=== PATIENT | male | born 1950 | race Caucasian/White ===

== ENCOUNTER 2024-03-21 12:56 | Emergency (ER) | payer MEDICARE, OTHER, SELFPAY ==
--- NOTE | ~2024-03-21 | XR_ITS ---
EXAMINATION: XR chest 1V portable DATE: 03/21/2024 16:46 INDICATION: Altered mental status. TECHNIQUE: A single frontal view of the chest was obtained. COMPARISON: None. FINDINGS: There is mild elevation of right hemidiaphragm. No pneumonia, pleural effusion, or pneumoth orax. The heart size is normal. IMPRESSION: 1. Mild elevation of right hemidiaphragm. Reviewed, dictated and finalized at location A.
--- NOTE | ~2024-03-21 | CT_ITS ---
EXAMINATION: CTA BRAIN/CAROTID DATE: 03/21/2024 14:57 INDICATION: Slurred speech TECHNIQUE: Computed tomographic angiography (CTA) of the head and neck was performed with 100 mL Omni paque-350 intravenous contrast. Multiplanar reconstructions and maximum intensity projection 3D-recon structions of the carotid arteries and of the intracranial arteries were created by the technologist on a separate workstation. Precontrast CT of the head was also obtained. Automated exposure control and iterative reconstruction technique were employed.The dose-length product was 1731.17 mGy-cm. COMPARISON: None. FINDINGS: Carotid arteries: Visualized thoracic aorta is normal in caliber with no dissection. There is small amount of atheroscl erotic plaque with 0% stenosis of the right carotid bulb relative to normal distal artery lumen diame ter (NASCET criteria). There is 20% stenosis of the left carotid bulb relative to normal distal arter y lumen diameter. Mild dependent atelectasis in the visualized upper lungs. Cervical soft tissues are unremarkable. Mild thoracic spondylosis. Head: No acute intracranial hemorrhage, acute infarction or abnormal extra axial fluid collection. There is mild scattered white matter hypoattenuation consistent with chronic small vessel ischemic disease. S ymmetric prominence of the sulci and ventricles consistent with mild to moderate age-appropriate diff use cerebral volume loss. No mass/mass effect. No abnormally enhancing brain lesions identified on th e postcontrast imaging. The orbits, paranasal sinuses and mastoid air cells are normal. Intracranial arteries Bilateral vertebral arteries are codominant. Small amount of atherosclerotic plaque with 30% stenosis at the proximal intracranial right vertebral artery. There is also atrophy chronic plaque at the loni ateral carotid siphons with 40% stenosis at the right suprasellar segment and 60% at the left suprase llar segment. There is no evident stenosis in the basilar and left vertebral artery. There are no ane urysms identified. Both A1 and P1 segments are patent. The left P1 segment is diminutive. There are patent bilateral posterior commuting artery is slightly larger in caliber on the left. Cerebral arter ial arborization appears symmetric. IMPRESSION: 1. 0% stenosis of the right carotid bulb relative to normal distal artery lumen diameter (NASCET crit eria). 2. 20% stenosis of the left carotid bulb relative to normal distal artery lumen diameter. 3. Scattered atherosclerotic plaque in the central intracranial arteries with 40% stenosis at the sup rasellar right internal carotid artery, 60% of the suprasellar left internal carotid artery and 30% s tenosis at the right vertebral artery. No aneurysms or thrombosis. 4. Normal aging brain with mild to moderate diffuse volume loss and mild scattered white matter hypoa ttenuation consistent with chronic small vessel ischemic disease. No acute intracranial process or ab normally enhancing brain lesions. Reviewed, dictated and finalized at location A. IMPRESSION: 1. 0% stenosis of the right carotid bulb relative to normal distal artery lumen diameter (NASCET criteria). 2. 20% stenosis of the left carotid bulb relative to normal distal artery lumen diameter. 3. Scattered atherosclerotic plaque in the central intracranial arteries with 4 0% stenosis at the suprasellar right internal carotid artery, 60% of the supras ellar left internal carotid artery and 30% stenosis at the right vertebral rama ry. No aneurysms or thrombosis. 4. Normal aging brain with mild to moderate diffuse volume loss and mild scatte red white matter hypoattenuation consistent with chronic small vessel ischemic disease. No acute intracranial process or abnormally enhancing brain lesions.
[2024-03-21 13:03] VITALS: BP 117/72; PULSE 73; RESP 19; TEMP 36.6; O2SAT 97
[2024-03-21 13:11] VITALS: O2SAT 97
--- NOTE | 2024-03-21 13:13 | PC.NURSE ---
Patient states scar on his stomach is from hx of liver cancer where they removed 64% of liver
--- NOTE | 2024-03-21 13:23 | ECG_ITS ---
Test Date: 2024-03-21 13:07:39 Measurements Intervals [place] Rate: 74 P: 23 TN: 199 QRS: 6 QRSD: 97 T: 0 QT: 405 QTc: 451 Interpretive Statements SINUS RHYTHM BORDERLINE ST ABNORMALITY- ANT/INF LEADS BASELINE ARTIFACT- I, II, III BORDERLINE ECG No previous ECG available for comparison Electronically Signed On 03-21-2024 13:43:00 CDT by Loki Roman D.O.
[2024-03-21 13:30] VITALS: BP 117/72; PULSE 67; RESP 18; O2SAT 95
[2024-03-21 14:11] LABS: Basophils Percent Auto 0.5 % (0.2-1.2); Eosinophils Percent Auto 0.5 % (0-4.4); Hemoglobin 11.1 g/dL (14.0-18.0); Immature Granulocyte Absolute 0.04 K/mm3 (0.00-0.031); Immature Granulocyte Percent A 0.6 % (0-0.5); Immature Platelet Fraction Pct 4.2 % (0.9-11.2); Lymphocytes Absolute Auto 0.78 K/mm3 (0.9-3.2); Lymphocytes Percent Auto 12.1 % (18.3-44.2); Mean Corpuscular HGB Conc 32.6 g/dl (32-36); Mean Corpuscular Hemoglobin 30.3 pg (26-34); Mean Corpuscular Volume 92.9 fl (80-100); Mean Platelet Volume 11.4 fl (7.4-10.4); Monocytes Absolute Auto 0.7 K/mm3 (0.1-0.6); Monocytes Percent Auto 10.2 % (2.6-8.5); Neutrophils Absolute Auto 4.9 K/mm3 (1.3-6.7); Neutrophils Percent Auto 76.1 % (45.5-73.1); Platelet Count Result 105 k/mm3 (150-375); Red Blood Count 3.66 M/mm3 (4.6-6.20); White Blood Count 6.5 K/mm3 (4.5-10.0)
[2024-03-21 14:17] LABS: INR 1.2; Prothrombin Time 15.2 Seconds (11.1-14.7)
[2024-03-21 14:18] LABS: Alanine Aminotransferase 19 U/L (6-50); Albumin Level 3.3 g/dL (3.5-5.1); Alkaline Phosphatase 246 U/L (38-126); Anion Gap 7 mmol/L (4-12); Aspartate Amino Transferase 58 U/L (17-59); Bilirubin,Total 0.6 mg/dL (0.2-1.3); Blood Urea Nitrogen 18 mg/dL (9-20); Calcium 10.2 mg/dL (8.4-10.2); Carbon Dioxide 26 mmol/L (22-30); Chloride 102 mmol/L (98-107); Estimated CRCL calculation 75 ml/min; Estimated Glomerular Filt Rate > 60; Glucose 89 mg/dL (65-110); Partial Thromboplastin Time 29.4 Seconds (22.3-36.8); Potassium 3.6 mmol/L (3.4-5.0); Sodium 135 mmol/L (137-145)
--- NOTE | 2024-03-21 14:32 | ED.AMS ---
HPI - Altered Mental Status General Chief Complaint: Altered Mental Status Stated Complaint: weakness Time Seen by Provider: 03/21/24 13:55 History of Present Illness HPI narrative: per , he had been acting funny since this morning, as in he was saying mean things to her. She called an ambulance because she heard a thud and found the patient on the ground. Patient himself is denying any complaints and does not think there is anything wrong; he states that he is here because he fell. Denies any chest pain, shortness of breath, headache, numbness anywhere. Per EMS had normal exam other than possibly slurred, slightly slow speech however patient states this was because he has no teeth in Related Data Allergies Allergy/AdvReac Type Severity Reaction Status Date / Time Unable to Assess Allergy Verified 03/21/24 13:21 Review of Systems Review of Systems: All systems reviewed & are unremarkable except as noted in HPI and below Exam Narrative: EXAMINATION OF ORGAN SYSTEMS/BODY AREAS: Constitutional: Vital signs per nursing GENERAL:[No acute distress, non-toxic appearing.] HEAD: Normal with no signs of head trauma. EYES: EOMI, conjunctiva normal, PERRL ENT: Hearing grossly intact LUNGS: Nonlabored breathing. HEART: [Regular rate and rhythm] ABD: [Soft], [nontender to palpation] EXT: Normal range of motion SKIN: [No rashes or lesions.] NEURO: [Alert and oriented x 3. Normal strength upper and lower extremities bilaterally.] Slightly slurred speech. No facial droop. PSYCH: Normal affect Course Vital Signs Vital signs: Vital Signs Temperature 97.8 F 03/21/24 13:03 Pulse Rate 73 03/21/24 13:03 Respiratory Rate 19 03/21/24 13:03 Blood Pressure 117/72 03/21/24 13:03 Pulse Oximetry 97 03/21/24 13:03 Oxygen Delivery Room Air 03/21/24 13:03 Temperature 98.4 F 03/21/24 16:49 Pulse Rate 100 03/21/24 16:49 Respiratory Rate 14 03/21/24 16:49 Blood Pressure 137/78 03/21/24 16:49 Pulse Oximetry 100 03/21/24 16:49 Oxygen Delivery Room Air 03/21/24 13:11 MDM - Altered Mental Status MDM Narrative Medical decision making narrative: Patient presents with potential head trauma/altered mental status, he was found on the floor. I did obtain further history from Ela his . He is denying any complaints, NIH stroke scale here is 0-1 for possible slightly slurred speech though this may be due to him not having dentures. A broad workup here initiated, only significance is benzodiazepines on his urine drug screen, I did review his medications and did not see anything on there, though he is on sertraline which can give a false positive. I did also talk to his Ela on the phone, she does state that he has had similar episodes in the past, patient states that he sees a neurologist and is due to see them in the next few days, and that he is feeling fine, and he does not want to stay and he wants to go home. [facility] and [facility] Department available to answer. I did let the patient know that I would like to transfer him some more so that he be seen by a neurologist as we do not have Neurology here today. Patient declines this, he states that he wants go home. Discussed risk of missing possible stroke with permanent neurologic damage or , he wants to go home. I did discuss this with his and she states that he does make his own medical decisions, patient is alert and oriented x4 at this time and I cannot hold him against his will. His will be here to pick him up and I did discuss strict return precautions with both her and with the patient, he does have close follow-up with his neurologist in the next few days. Lab Data 03/21/24 14:02 03/21/24 14:02 Labs: Lab Results 03/21/24 03/21/24 Range/Units 14:02 15:22 WBC 6.5 (4.5-10.0) K/mm3 RBC 3.66 L (4.6-6.20) M/mm3 Hgb 1
[2024-03-21 15:29] LABS: Add Urine Microscopic? NO; Appearance Urine Clear (Clear); Bilirubin Urine Negative (Negative); Blood Urine Negative (Negative); Color Urine Yellow (Yellow); Glucose Urine UA Negative (Negative); Ketones Urine Trace mg/dL (Negative); Leukocyte Esterase Ur Negative LEU/UL (Negative); Nitrate Urine Negative (Negative); Protein Urine Negative (Negative); Specific Grav Ur 1.036 (1.001-1.035); pH Urine 5.5 (5.0-9.0)
[2024-03-21 15:30] VITALS: BP 128/90; PULSE 68; RESP 15; O2SAT 98
[2024-03-21 15:55] LABS: Ethanol < 10 mg/dL (<10)
[2024-03-21 16:08] LABS: Amphetamine Screen Urine Negative (Negative); Barbiturate Screen Urine Negative (Negative); Benzodiazepines Screen Urine Positive (Negative); Cannabinoid Screen Urine Negative (Negative); Cocaine Screen Urine Negative (Negative); Methadone Screen Urine Negative (Negative); Opiate Screen Urine Negative (Negative); Phencyclidine Screen Urine Negative (Negative)
[2024-03-21 16:49] VITALS: BP 137/78; PULSE 100; RESP 14; TEMP 36.9; O2SAT 100
--- NOTE | 2024-03-21 17:28 | PC.NURSE ---
Patient spouse called to discuss discharge and a ride home. spouse is going to come get the patient but is coming from [place].
[2024-03-21 18:21] VITALS: BP 153/77; PULSE 73; RESP 20; TEMP 36.7; O2SAT 99
== END 2024-03-21 18:05 | disposition home or self-care (01) ==
PROVIDERS: Emergency Provider Emergency Medicine
DX: R41.82 Altered mental status, unspecified (principal)
CPT/HCPCS: 36415; 70496; 70498; 71045; 80053; 80307; 81003; 84443; 85025; 85055; 85610; 85730; 93005; 99284; Q9967

== ENCOUNTER 2024-03-22 20:44 | Observation (INO) | payer MEDICARE, OTHER, SELFPAY ==
[2024-03-22] VITALS (8 sets, daily range): BP systolic 124–132; BP diastolic 57–78; PULSE 69–78; RESP 16–25; TEMP 36.5–36.6; O2SAT 96–97; BMI 29.6
--- NOTE | ~2024-03-22 | XR_ITS ---
EXAMINATION: XR chest 1V portable DATE: 03/22/2024 21:16 INDICATION: Sleepiness after medications. TECHNIQUE: A single frontal view of the chest was obtained. COMPARISON: Chest single view 03/21/2024 FINDINGS: There is no pneumonia, pleural effusion, or pneumothorax. The heart size is normal. IMPRESSION: 1. No acute cardiopulmonary disease. Reviewed, dictated and finalized at location A.
--- NOTE | ~2024-03-22 | CT_ITS ---
EXAMINATION: CT brain wo con DATE: 03/23/2024 09:39 INDICATION: Altered mental status. TECHNIQUE: Computed tomography (CT) of the head was performed without intravenous contrast. The mA wa s adjusted according to patient size. Iterative reconstruction technique was employed. The dose-lengt h product was 605.33 mGy-cm. COMPARISON: Head CT 03/21/2024 FINDINGS: There is no intracranial hemorrhage, acute infarction, or abnormal intracranial mass lesion . The ventricles are normal in size. There is mild mucosal thickening in the ethmoid sinuses. The orb its are normal. The mastoid air cells are normal. IMPRESSION: 1. Normal brain. Reviewed, dictated and finalized at location A. IMPRESSION: 1. Normal brain.
--- NOTE | 2024-03-22 20:49 | ECG_ITS ---
Test Date: 2024-03-22 21:20:42 Measurements Intervals [place] Rate: 74 P: -68 CO: 155 QRS: -10 QRSD: 101 T: 2 QT: 398 QTc: 444 Interpretive Statements SINUS RHYTHM LOW QRS VOLTAGE IN PRECORDIAL LEADS BORDERLINE ST-T WAVE ABNORMALITY- ANTEROLAT/INF LEADS BASELINE ARTIFACT- II, III, V4 BORDERLINE ECG Compared to ECG 03/21/2024 13:07:39 NO SIGNIFICANT CHANGE Electronically Signed On 03-23-2024 06:49:32 CDT by Loki Roman D.O.
--- NOTE | 2024-03-22 20:51 | ED.AMS ---
HPI - Altered Mental Status General Chief Complaint: Altered Mental Status Stated Complaint: Syncopal Episode Time Seen by Provider: 03/22/24 20:49 Source: patient and EMS Mode of arrival: ambulatory Limitations: altered mental status History of Present Illness HPI narrative: patient is a 73-year-old male who seems to be getting altered mental status after taking his evening medications. He is usually fine all day and then he takes his night meds which include Zoloft and Seroquel. EMS got a normal sugar. His temperature was slightly elevated at 99?. He is not very talkative at this time and very lethargic. Family say he is normally good all day. EMS did not find any stroke abnormalities. patient has hypotension with orthostatics. MD complaint: altered mental status Onset (ago): hour(s) (1) Timing confirmed by: spouse and other ( EMS) Severity: moderate Consistency of symptoms: constant ( after taking his medicines within an hour) Associated symptoms: denies other symptoms Treatments prior to arrival: IV fluid Related Data Home Medications Medication Instructions Recorded Confirmed allopurinol 300 mg tablet 300 mg PO DAILY 03/22/24 03/22/24 atenolol 100 mg tablet 100 mg PO DAILY 03/22/24 03/22/24 atorvastatin 80 mg tablet 80 mg PO DAILY 03/22/24 03/22/24 cholecalciferol (vitamin D3) 25 25 mcg PO DAILY 03/22/24 03/22/24 mcg (1,000 unit) tablet (Vitamin D3) loratadine 10 mg tablet 10 mg PO DAILY 03/22/24 03/22/24 meloxicam 15 mg tablet 15 mg PO DAILY 03/22/24 03/22/24 omeprazole 20 mg capsule,delayed 20 mg PO DAILY 03/22/24 03/22/24 release quetiapine 400 mg tablet,extended 400 mg PO HS 03/22/24 03/22/24 release 24 hr sertraline 100 mg tablet 200 mg PO DAILY 03/22/24 03/22/24 Allergies Allergy/AdvReac Type Severity Reaction Status Date / Time No Known Allergies Allergy Verified 03/22/24 21:04 Review of Systems Review of Systems: All systems reviewed & are unremarkable except as noted in HPI and below Constitutional: Constitutional: Reports no additional constitutional complaints Eyes: Eyes: Reports no additional eye complaints ENT: Reports system reviewed and no additional complaints, except as documented Cardiovascular: Cardiovascular: Reports no additional cardiovascular complaints Respiratory: Respiratory: Reports no additional respiratory complaints Gastrointestinal: Gastrointestinal: Reports no additional gastrointestinal complaints Genitourinary: Genitourinary: Reports no additional male genitourinary complaints Musculoskeletal: Musculoskeletal: Reports no additional musculoskeletal complaints Integumentary/Breasts: Skin/Breast: Reports system reviewed and no additional complaints, except as docu Neurologic: Reports system reviewed and no additional complaints, except as documented Psychiatric: Psychiatric: Reports no additional psychiatric complaints Endocrine: Endocrine: Reports no additional endocrine complaints Hematologic/Lymphatic: Hematologic/Lymphatic: Reports no additional hematologic/lymphatic complaints Allergic/Immunologic: Allergic/Immunologic: Reports no additional allergic/immunologic complaints Exam Const: General: ill appearing Nutritional Appearance: well nourished Orientation/consciousness: patient oriented x3 Limitations: altered mental status HENMT: Head: normal to inspection Ears: external ears normal Face/Nose/Sinus: Normal external nose present Eyes: Conjunctivae: conjunctivae normal Pupils: Equal, round and reactive pupils present EOM: EOMs intact bilaterally Neck: Neck: normal visual inspection Chest: Chest palpation & inspection: normal inspection of the chest Resp: Effort & Inspection: normal respiratory effort and not labored Auscultation: clear to auscultation bilaterally and no crackles Cardio: Rate: regular rate Rhythm: regular rhythm Heart sounds: no murmurs GI: Inspection: non-distended GI Palp: Yes Soft to palpation and No Tende
[2024-03-22 21:08] LABS: Basophils Absolute Auto 0.02 K/mm3 (0.00-0.10); Basophils Percent Auto 0.3 % (0.0-1.0); Eosinophils Absolute Auto 0.02 K/mm3 (0.02-0.50); Eosinophils Percent Auto 0.3 % (1.0-6.0); Hematocrit 36.8 % (37.0-46.0); Hemoglobin 12.3 g/dL (12.4-15.3); Immature Granulocyte Absolute 0.04 K/mm3 (0.00-0.00); Immature Granulocyte Percent A 0.5 % (0.0-0.0); Immature Platelet Fraction Pct 4.1 % (1.0-7.0); Lymphocytes Absolute Auto 0.62 K/mm3 (1.10-4.50); Lymphocytes Percent Auto 8.4 % (18.0-42.0); Mean Corpuscular HGB Conc 33.4 g/dL (32-36); Mean Corpuscular Volume 89.8 fL (78.0-102.0); Mean Platelet Volume 11.3 fl (8.7-11.0); Monocytes Absolute Auto 0.79 K/mm3 (0.10-0.90); Monocytes Percent Auto 10.6 % (2.0-11.0); Neutrophils Absolute Auto 5.93 K/mm3 (1.70-7.20); Neutrophils Percent Auto 79.9 % (50.0-70.0); Platelet Count Result 106 K/mm3 (150-420); Red Cell Distribution Width 13.1 % (11.6-14.4); White Blood Count 7.4 K/mm3 (4.8-10.8)
[2024-03-22] MEDS: SODIUM CHLORIDE 0.9% IV 1,000 ML 150 ML IV CONT (21:42)
[2024-03-22 22:20] LABS: Ethanol < 10 mg/dL (<10)
[2024-03-22 22:21] LABS: Lactic Acid Reflex 0.9 mmol/L (0.7-2.0)
[2024-03-22 22:29] LABS: Amphetamine Screen Urine Negative (Negative); Barbiturate Screen Urine Negative (Negative); Benzodiazepines Screen Urine Positive (Negative); Cannabinoid Screen Urine Negative (Negative); Cocaine Screen Urine Negative (Negative); Methadone Screen Urine Negative (Negative); Opiate Screen Urine Negative (Negative); Phencyclidine Screen Urine Negative (Negative)
[2024-03-22 22:42] LABS: Appearance Urine Clear (Clear); Color Urine Amber (Yellow); Glucose Urine UA Negative (Negative); Protein Urine Negative (Negative); Specific Grav Ur 1.025 (1.010-1.020)
[2024-03-22 22:43] LABS: Add Urine Microscopic? YES; Bacteria Urine None seen /hpf; Bilirubin Urine 2+ (Negative); Blood Urine Negative (Negative); Ketones Urine Negative (Negative); Leukocyte Esterase Ur Negative LEU/UL (Negative); Nitrate Urine Negative (Negative); RBC Urine 0-2 /hpf (0-2); Squamous Epithelial Cell Urine None seen /hpf (Few); WBC Urine 0-3 /hpf (0-3)
[2024-03-22 22:53] LABS: Influenza A QL RT-PCR Negative (Negative); Influenza B QL RT-PCR Negative (Negative); RSV RNA, RT-PCR Negative (Negative); SARS-CoV-2 RNA PCR Negative (Negative)
[2024-03-22 23:00] LABS: Alanine Aminotransferase 24 U/L (6-50); Albumin Level 3.7 g/dL (3.5-5.1); Alkaline Phosphatase 306 U/L (38-126); Anion Gap 8 mmol/L (4-12); Aspartate Amino Transferase 104 U/L (17-59); Bilirubin,Total 0.7 mg/dL (0.2-1.3); Blood Urea Nitrogen 16 mg/dL (9-20); Calcium 10.7 mg/dL (8.4-10.2); Carbon Dioxide 25 mmol/L (22-30); Chloride 101 mmol/L (98-107); Estimated CRCL calculation 76 ml/min; Estimated Glomerular Filt Rate > 60; Glucose 104 mg/dL (65-110); Magnesium 1.8 mg/dL (1.6-2.3); Osmolality Calculated 279 mOsm/kg (285-295); Potassium 3.6 mmol/L (3.4-5.0); Sodium 134 mmol/L (137-145)
--- NOTE | 2024-03-22 23:05 | PC.NURSE ---
Room # given to Carmen ED RN, room ready, awaiting patient.
[2024-03-22 23:12] LABS: Troponin I < 0.012 ng/mL (0.000-0.034)
--- NOTE | 2024-03-22 23:13 | PC.NURSE ---
Pt will be admitted for 23 hr obs. Spoke with pt about POC, he is drowsy, but awakens easily. VSS.
--- NOTE | 2024-03-22 23:20 | PC.NURSE ---
Report given to [facility] and will await call back for bed placement.
[2024-03-22] MEDS: SODIUM CHLORIDE 0.9% IV 1,000 ML 100 ML IV CONT (23:30)
[2024-03-23] VITALS: BP 128/68; PULSE 67; RESP 17; TEMP 36.7; O2SAT 95
--- NOTE | 2024-03-23 00:04 | ADMGEN ---
This patient, Quintin Rain Jr., was admitted to 2nd Floor Room 226-1. Patient oriented to hospital policies and general routines including ID bracelet, bed and alarms, visiting hours, pain management, procedures, bathroom and other care routines, personal items, smoking policy, room service/diet, and visiting hours. Information on how to activate the Rapid Response Team has been discussed. Patient are encouraged to report perceived risks to care and to ask questions if they do not understand what they are told or what they should do.
[2024-03-23 00:31] LABS: Glucose Point of Care 84 mg/dl (65-105)
[2024-03-23 04:00] VITALS: PULSE 69; RESP 17; TEMP 36.7; O2SAT 94
[2024-03-23 05:59] LABS: Basophils Absolute Auto 0.02 K/mm3 (0.00-0.10); Basophils Percent Auto 0.3 % (0.0-1.0); Eosinophils Absolute Auto 0.03 K/mm3 (0.02-0.50); Eosinophils Percent Auto 0.5 % (1.0-6.0); Hematocrit 34.3 % (37.0-46.0); Hemoglobin 11.4 g/dL (12.4-15.3); Immature Granulocyte Absolute 0.05 K/mm3 (0.00-0.00); Immature Granulocyte Percent A 0.8 % (0.0-0.0); Immature Platelet Fraction Pct 3.5 % (1.0-7.0); Lymphocytes Absolute Auto 0.57 K/mm3 (1.10-4.50); Lymphocytes Percent Auto 8.7 % (18.0-42.0); Mean Corpuscular HGB Conc 33.2 g/dL (32-36); Mean Corpuscular Hemoglobin 29.8 pg (27.0-31.0); Mean Corpuscular Volume 89.8 fL (78.0-102.0); Mean Platelet Volume 11.8 fl (8.7-11.0); Monocytes Absolute Auto 0.74 K/mm3 (0.10-0.90); Monocytes Percent Auto 11.3 % (2.0-11.0); Neutrophils Absolute Auto 5.12 K/mm3 (1.70-7.20); Neutrophils Percent Auto 78.4 % (50.0-70.0); Platelet Count Result 94 K/mm3 (150-420); Red Blood Count 3.82 M/mm3 (4.70-6.10); Red Cell Distribution Width 13.1 % (11.6-14.4); White Blood Count 6.5 K/mm3 (4.8-10.8)
[2024-03-23] MEDS: SODIUM CHLORIDE 0.9% IV 1,000 ML 150 ML IV CONT (06:37)
[2024-03-23 07:59] VITALS: BP 144/76; PULSE 65; PULSE 67; RESP 20; TEMP 36.4; O2SAT 99
[2024-03-23] MEDS: ENOXAPARIN 30 MG/0.3 ML SYRINGE SUB-Q (08:31)
--- NOTE | 2024-03-23 08:52 | PM.IMHP ---
H&P: HPI History of Present Illness Date/Time: 03/23/24 08:52 Chief Complaint: AMS Narrative: This is a 73 year old male with a significant past medical history of hypertension, hyperlipidemia, GERD, gout, vitamin-D deficiency, depression who presents to the hospital with altered mental status after taking his Zoloft and his Seroquel which are his nightly medications. Patient was recently seen on 03/21/2024 in the ER due to similar complaint of altered mental status status post fall. He was noted to have some slurred speech however his NIH stroke scale at that time was 0-1. He denied transferred to tertiary hospital for neurology workup and was sent home from the ER. On 03/21/2024 he did have a head and neck CTA which showed 0% stenosis of the right carotid bulb, 20% stenosis of the left carotid bulb, scattered atherosclerotic plaque in the central intracranial arteries with 40% stenosis at the suprasellar right internal carotid artery, 60% of the suprasellar left internal carotid artery and 30% stenosis at the right vertebral artery, Normal age-related changes were also seen. Chest x-ray today was negative for any acute cardiopulmonary process. Initial labs showed a white blood cell count of 7.4, RBC 4.10, hemoglobin 12.3, platelet count 106, sodium 134, AST 104, alk-phos 306, troponin was negative. UA was also obtained and showed mirna colored urine with a urine specific gravity of 1.025, 2+ urine bilirubin, otherwise normal. Urine drug screen was positive for benzodiazepine, ethanol alcohol was less than 10. Respiratory panel was obtained and was negative for influenza a and B, RSV, COVID. Blood cultures were obtained and are pending. EKG showed sinus rhythm with a rate of 74, QTC 444. He was started on IV fluids while in the ED. Review of Systems Review of Systems: All systems reviewed & are unremarkable except as noted in HPI and below Constitutional: Constitutional: Reports as per HPI and Reports no additional constitutional complaints Eyes: Eyes: Reports as per HPI and Reports no additional eye complaints ENT: Reports system reviewed and no additional complaints, except as documented and Reports as per HPI Cardiovascular: Cardiovascular: Reports as per HPI and Reports no additional cardiovascular complaints Respiratory: Respiratory: Reports as per HPI and Reports no additional respiratory complaints Gastrointestinal: Gastrointestinal: Reports as per HPI and Reports no additional gastrointestinal complaints Genitourinary: Genitourinary: Reports no additional male genitourinary complaints and Reports as per HPI Musculoskeletal: Musculoskeletal: Reports no additional musculoskeletal complaints and Reports as per HPI Integumentary/Breasts: Skin/Breast: Reports system reviewed and no additional complaints, except as docu and Reports as per HPI Neurologic: Reports system reviewed and no additional complaints, except as documented and Reports as per HPI Psychiatric: Psychiatric: Reports no additional psychiatric complaints and Reports as per HPI PMFSH Past Medical History Medical History (Updated 03/23/24 @ 09:29 by Della Diaz APRN) Depression GERD (gastroesophageal reflux disease) Gout Hyperlipidemia Hypertension Vitamin D deficiency Social History Social History Smoking status: Never smoker Alcohol intake: former Substance use: never Substance use type: does not use Do You Feel Safe in your Home?: Yes Lack of Transportation: No Lack of Food: Never True Current Housing: I Have Housing Concerned About Future Housing: No Difficulty Paying Gas/Electric Bills: No Difficulty Paying for Meds: No Currently Unemployed: No Education: Trade/Vocational Certificate Difficulty w/ Childcare or Family Care: No Spiritual care concerns: No Meds Home Medications and Allergies Home Medications Medication Instructions Recorded Co
[2024-03-23] MEDS: CHOLECALCIFEROL 1,000 UNITS TABLET 1000 UNITS PO (10:05)
[2024-03-23] MEDS: ATORVASTATIN 40 MG TABLET 80 MG PO (10:05)
[2024-03-23] MEDS: LORATADINE 10 MG TABLET PO (10:05)
[2024-03-23] MEDS: allopurinoL 300 MG TABLET PO (10:05)
[2024-03-23 10:06] VITALS: PULSE 65
[2024-03-23] MEDS: ASPIRIN 81 MG CHEWABLE TABLET PO (10:06)
[2024-03-23] MEDS: atenoloL 50 MG TABLET 100 MG PO (10:06)
[2024-03-23 10:21] LABS: Alanine Aminotransferase 21 U/L (6-50); Alkaline Phosphatase 278 U/L (38-126); Anion Gap 8 mmol/L (4-12); Aspartate Amino Transferase 91 U/L (17-59); Bilirubin,Total 0.8 mg/dL (0.2-1.3); Blood Urea Nitrogen 13 mg/dL (9-20); Calcium 10.2 mg/dL (8.4-10.2); Carbon Dioxide 23 mmol/L (22-30); Chloride 104 mmol/L (98-107); Estimated CRCL calculation 93 ml/min; Estimated Glomerular Filt Rate > 60; Glucose 95 mg/dL (65-110); Osmolality Calculated 280 mOsm/kg (285-295); Potassium 3.4 mmol/L (3.4-5.0); Sodium 135 mmol/L (137-145)
[2024-03-23 12:00] VITALS: BP 163/99; PULSE 69; RESP 16; TEMP 36.5; O2SAT 97
--- NOTE | 2024-03-23 12:50 | PM.TDS ---
Transfer Discharge Sum: Prov Provider Date of admission: 03/22/24 23:23 Primary care physician: Wen Fuller MD Admitting clinician: Leiv Valdivia MD Consults: None Attending physician on discharge: Smith Valdivia Discharging clinician: Della Diaz Anticipated date of transfer: 03/23/24 Receiving physician/facility: Dr. Bennett, hospitalist at [facility] Dr. Cardoza, Neurologist at [facility]. DS: Admitting Diagnosis Discharge Date 03/23/24 Admitting Diagnosis altered mental status TIA DS: Discharge Diagnosis Discharge Diagnosis (1) Altered mental state: Qualifiers: Altered mental status type: unspecified Qualified Code(s): R41.82 - Altered mental status, unspecified Code(s): R41.82 - Altered mental status, unspecified Status: Acute (2) Hypertension: Code(s): I10 - Essential (primary) hypertension Status: Acute (3) Hyperlipidemia: Code(s): E78.5 - Hyperlipidemia, unspecified Status: Acute (4) Transient ischemic attack (TIA): Code(s): G45.9 - Transient cerebral ischemic attack, unspecified Status: Acute Transfer Discharge Sum: Med Medications Active and Home Medications: Home Medications allopurinol 300 mg tablet 300 mg PO DAILY 03/22/24 [History Confirmed 03/22/24] atenolol 100 mg tablet 100 mg PO DAILY 03/22/24 [History Confirmed 03/22/24] atorvastatin 80 mg tablet 80 mg PO DAILY 03/22/24 [History Confirmed 03/22/24] cholecalciferol (vitamin D3) 25 mcg (1,000 unit) tablet (Vitamin D3) 25 mcg PO DAILY 03/22/24 [History Confirmed 03/22/24] loratadine 10 mg tablet 10 mg PO DAILY 03/22/24 [History Confirmed 03/22/24] meloxicam 15 mg tablet 15 mg PO DAILY 03/22/24 [History Confirmed 03/22/24] omeprazole 20 mg capsule,delayed release 20 mg PO DAILY 03/22/24 [History Confirmed 03/22/24] quetiapine 400 mg tablet,extended release 24 hr 400 mg PO HS 03/22/24 [History Confirmed 03/22/24] sertraline 100 mg tablet 200 mg PO DAILY 03/22/24 [History Confirmed 03/22/24] Active Medications Acetaminophen (Acetaminophen 325 Mg Tablet) 650 mg PO Q4H PRN PRN Reason: Mild Pain (1-3) or Fever Allopurinol (Allopurinol 300 Mg Tablet) 300 mg PO DAILY [facility] Last Admin: 03/23/24 10:05 Dose: 300 mg Aspirin (Aspirin 81 Mg Chewable Tablet) 81 mg PO DAILY@0800 [facility] Last Admin: 03/23/24 10:06 Dose: 81 mg Atenolol (Atenolol 50 Mg Tablet) 100 mg PO DAILY [facility] Last Admin: 03/23/24 10:06 Dose: 100 mg Atorvastatin Calcium (Atorvastatin 40 Mg Tablet) 80 mg PO DAILY [facility] Last Admin: 03/23/24 10:05 Dose: 80 mg Enoxaparin Sodium (Enoxaparin 30 Mg/0.3 Ml Syringe) 30 mg SUB-Q DAILY [facility] Last Admin: 03/23/24 08:31 Dose: 30 mg Sodium Chloride (Normal Saline Iv) 1,000 mls @ 100 mls/hr IV CONT .Q10H [facility] Last Admin: 03/23/24 06:37 Dose: 150 mls/hr Lisinopril (Lisinopril 5 Mg Tablet) 5 mg PO QAM [facility] Loratadine (Loratadine 10 Mg Tablet) 10 mg PO DAILY [facility] Last Admin: 03/23/24 10:05 Dose: 10 mg Ondansetron HCl (Ondansetron Inj 4 Mg/2 Ml Vial) 4 mg IV PUSH Q6H PRN PRN Reason: Nausea And Vomiting Vitamin D (Cholecalciferol 1,000 Units Tablet) 1,000 units PO DAILY [facility] Last Admin: 03/23/24 10:05 Dose: 1,000 units Transfer Discharge Sum: Hosp Hospital Course Hospital course: Quintin Rain Jr. is a 73 year old male with a significant past medical history of hypertension, hyperlipidemia, GERD, gout, vitamin-D deficiency, depression who presents to the hospital with altered mental status after taking his Zoloft and his Seroquel which are his nightly medications. Patient was recently seen on 03/21/2024 in the ER due to similar complaint of altered mental status status post fall. He was noted to have some slurred speech however his NIH stroke scale at that time was 0-1. He denied transferred to tertiary hospital for neurology workup and was sent home from the ER. On 03/21/2024 he did have a head and nec
[2024-03-23] MEDS: lisinopriL 5 MG TABLET PO (12:59)
[2024-03-23] MEDS: SODIUM CHLORIDE 0.9% IV 1,000 ML 100 ML IV CONT (13:06)
--- NOTE | 2024-03-23 13:31 | PM.IMHP ---
H&P: HPI History of Present Illness Date/Time: 03/23/24 13:31 Chief Complaint: AMS Narrative: Quintin Rain Jr. is a 73 year old male with a significant past medical history of hypertension, hyperlipidemia, GERD, gout, vitamin-D deficiency, depression who presents to the hospital with altered mental status after taking his Zoloft and his Seroquel which are his nightly medications. Patient was recently seen on 03/21/2024 in the ER due to similar complaint of altered mental status status post fall. He was noted to have some slurred speech however his NIH stroke scale at that time was 0-1. He denied transferred to tertiary hospital for neurology workup and was sent home from the ER. On 03/21/2024 he did have a head and neck CTA which showed 0% stenosis of the right carotid bulb, 20% stenosis of the left carotid bulb, scattered atherosclerotic plaque in the central intracranial arteries with 40% stenosis at the suprasellar right internal carotid artery, 60% of the suprasellar left internal carotid artery and 30% stenosis at the right vertebral artery, Normal age-related changes were also seen. Chest x-ray today was negative for any acute cardiopulmonary process. Initial labs showed a white blood cell count of 7.4, RBC 4.10, hemoglobin 12.3, platelet count 106, sodium 134, AST 104, alk-phos 306, troponin was negative. UA was also obtained and showed mirna colored urine with a urine specific gravity of 1.025, 2+ urine bilirubin, otherwise normal. Urine drug screen was positive for benzodiazepine, ethanol alcohol was less than 10. Respiratory panel was obtained and was negative for influenza a and B, RSV, COVID. Blood cultures were obtained and are pending. EKG showed sinus rhythm with a rate of 74, QTC 444. He was started on IV fluids while in the ED. After examining the patient speaking with the patient's I have high suspicion for transit ischemic attack versus ischemic stroke. Patient denies any fever, chills, nausea, vomiting, diarrhea, abdominal pain, chest pain, shortness a breath, lightheadedness, dizziness, headache, vision changes. He does have good strength in all 4 extremities and is able to move all 4 extremities. He does have some mild facial droop on the left with mild slurred speech. No other neuro deficits were observed. Patient states that he remembers falling on the 5th and coming to the ED for evaluation. He states that he was awake and alert the entire time and remembers the incident. However when speaking with his about this incident she states that he could not move or get up and noted him to have slurred speech and lack of coordination. Review of Systems Review of Systems: All systems reviewed & are unremarkable except as noted in HPI and below Constitutional: Constitutional: Reports as per HPI and Reports no additional constitutional complaints Eyes: Eyes: Reports as per HPI and Reports no additional eye complaints ENT: Reports system reviewed and no additional complaints, except as documented and Reports as per HPI Cardiovascular: Cardiovascular: Reports as per HPI and Reports no additional cardiovascular complaints Respiratory: Respiratory: Reports as per HPI and Reports no additional respiratory complaints Gastrointestinal: Gastrointestinal: Reports as per HPI and Reports no additional gastrointestinal complaints Genitourinary: Genitourinary: Reports no additional male genitourinary complaints and Reports as per HPI Musculoskeletal: Musculoskeletal: Reports no additional musculoskeletal complaints and Reports as per HPI Integumentary/Breasts: Skin/Breast: Reports system reviewed and no additional complaints, except as docu and Reports as per HPI Neurologic: Reports system reviewed and no additional complaints, except as documented and Reports as per HPI Psychiatric: Psychiatric: Reports no additional psychiatric complaints and Reports as per HPI PMFSH Past Medical History Medical History (Reviewed
--- NOTE | 2024-03-23 13:43 | PC.NURSE ---
[facility] contacted to transfer patient to [facility].
--- NOTE | 2024-03-23 14:15 | PC.NURSE ---
Discharge Nurses Note: Report given to Rebecca at [facility], pt accepted by Dr. Bennett, [facility] to transport.
== END 2024-03-23 14:15 | disposition short-term general hospital (02) ==
LOC: CHSED 23:05 → CHS2ND 03-23 08:04
PROVIDERS: Admitting Provider Internal Medicine; Emergency Provider Emergency Medicine; PCP Emergency Medicine; Visit Provider Internal Medicine
DX: G45.9 Transient cerebral ischemic attack, unspecified (principal); E87.5 Hyperkalemia; I10 Essential (primary) hypertension; K21.9 Gastro-esophageal reflux disease without esophagitis; M10.9 Gout, unspecified; E55.9 Vitamin D deficiency, unspecified; F32.A Depression, unspecified; Z85.05 Personal history of malignant neoplasm of liver; Z20.822 Contact with and (suspected) exposure to COVID-19; Z79.899 Other long term (current) drug therapy
CPT/HCPCS: 36415; 70450; 71045; 80053; 80307; 81001; 82607; 82948; 83605; 83735; 84443; 84484; 85025; 85055; 87040; 87637; 93005; 96360; 96361; 96372; 99285; A9270; G0378; J1650; J7030